=== PATIENT | female | born 1995 ===

== ENCOUNTER → 2025-06-30 13:29 | Outpatient (REF) | payer BC, SELFPAY | LOC: RAD 13:29 | PROVIDERS: ATTENDING PHYSICIAN Nurse Practitioner Adult Health; FAMILY PHYSICIAN Registered Nurse | DX: N94.6 Dysmenorrhea, unspecified (principal); R10.20 Pelvic and perineal pain unspecified side; N83.8 Other noninflammatory disorders of ovary, fallopian tube and broad ligament | CPT/HCPCS: 76830; 76856 ==